=== PATIENT | female | born 1970 | race Asian ===

== ENCOUNTER 2024-08-20 12:29 | Emergency (ER) | payer OTHER, SELFPAY ==
[2024-08-20 12:40] VITALS: BP 155/107
[2024-08-20 12:51] VITALS: BMI 34.2
[2024-08-20 13:13] VITALS: BP 140/94
[2024-08-20 13:21] LABS: % Basophils 0.7 % (0-2); % Eosinophils 3.3 % (0-6); % Immature Granulocytes 0.2 % (0-0.5); % Lymphocytes 36.5 % (20.5-51.1); % Monocytes 7.4 % (1.7-9.3); % Neutrophils 51.9 % (42.2-75.2); Absolute Eosinophils 0.1 10^3/uL (0-0.7); Absolute Lymphocytes 1.5 10^3/uL (1.2-3.4); Absolute Monocytes 0.3 10^3/uL (0.1-0.6); Absolute Neutrophils 2.2 10^3/uL (1.4-6.5); Hematocrit 39.2 % (37.0-47.0); Hemoglobin 12.8 g/dL (12.0-16.0); Mean Corp Hgb Conc. 32.7 g/dL (33.0-37.0); Mean Corpuscular Hgb 28.6 pg (27.0-31.0); Mean Corpuscular Volume 87.5 fL (81.0-99.0); Mean Platelet Volume 10.2 fL (7.4-10.4); Nucleated Red Blood Cells % 0 %; Platelet Count 198 10^3/uL (130-400); Red Blood Cell Count 4.48 10^6/uL (4.20-5.40); Red Cell Dist. Width 13.7 % (11.5-14.5); White Blood Cell Count 4.2 10^3/uL (4.8-10.8)
[2024-08-20 13:35] LABS: HCG, Serum Qualitative Screen Negative
[2024-08-20 13:37] LABS: ALT (SGPT) 18 U/L (0-35); AST (SGOT) 24 U/L (14-36); Albumin 4.5 g/dl (3.5-5.0); Alkaline Phosphatase 37 U/L (38-126); Blood Urea Nitrogen 13 mg/dl (7-17); Calcium 9.3 mg/dl (8.4-10.2); Carbon Dioxide 27 mmol/L (22-30); Chloride 103 mmol/L (98-107); Estimated Creatinine Clearance 112 ml/min; Glucose 80 mg/dl (70-99); Potassium 4.3 mmol/L (3.5-5.1); Sodium 139 mmol/L (135-145); Total Bilirubin 0.5 mg/dl (0.2-1.3); Total Protein 7.7 g/dl (6.3-8.2); eGFR > 60.00
[2024-08-20 14:00] VITALS: BP 131/89
--- NOTE | 2024-08-20 14:01 | ED.GENMED ---
History of Present Illness
General
Chief Complaint: Headache
Source: patient
Exam Limitations: none
Time Seen by Provider: 08/20/24 12:54
Nursing documentation reviewed up to this point in time: agreed with
History of Present Illness
History of Present Illness:
Patient is a 52-year-old female with past medical history of migraines presents to the ER for evaluation. Patient started with a headache 2 nights ago which she reports is different than her normal migraines. She had a little light sensitivity
with it however pain was all over her head and usually it behind her eyes when she gets a migraine. She did take her sumatriptan it did help her light sensitivity but did not relieve her headache. She went to urgent care yesterday blood pressure
was high at that time. Patient reports she is back today with continued headache and a little nausea. She feels that her head is heavy and she has a headache in the back of her head.
SHe reports her blood pressure is still high.
She has no diagnosis of high blood pressure.
Past History
Past History
ED Past Medical History: None
ED Past Surgical History: None
Social History
Tobacco: Non-smoker
Alcohol: None
Personal:
Living: with family
Review of Systems
Review of Systems
Allergies reviewed?: Yes
All Other Systems: ROS reviewed and negative except as documented in HPI and ROS
Constitutional: Reports no symptoms; Denies fever, fatigue or chills
Respiratory: Reports no symptoms
Cardiac: Reports no symptoms
ABD/GI: Reports nausea and vomiting
Musculoskeletal: Reports no symptoms
Skin: Reports no symptoms
Neurological: Reports headache
Psychiatric: Reports no symptoms
Phy Exam
General Physical Exam
General Presentation: no apparent distress
General age: appears stated age
General Skin: warm and dry
General Habitus: normal
General Mental: alert
General Hydration: appears well hydrated
Cardiovascular Exam
Cardiovascular Exam: regular rate/rhythm
Pulmonary Exam
Pulmonary Exam: lungs clear
Neurological Exam
Neurological Exam: alert, oriented x3, no motor deficits and no sensory deficits
Cerebellar
Cerebellar Function: normal finger to nose
Musculoskeletal Exam
Musculoskeletal Exam: full ROM
Skin Exam
Skin Exam: normal color and warm/dry
Psychiatric Exam
Psychiatric Exam: normal mood/affect
Course
Orders/Labs/Results
Orders:
Orders
08/20/24 13:13
Test Result ONCE
08/20/24 13:14
Complete Blood Count/With Diff Urgent
Comprehensive Metabolic Panel Urgent
HCG, Serum Qualitative Screen Urgent
08/20/24 14:00
CT Head W/o Iv Contrast Urgent
Comment:
Reason For Exam: headache
08/20/24 14:01
0.9% Sodium Chloride 1000 ml [Nss] 1,000 ml IV BOLUS
08/20/24 14:31
Ketorolac [Toradol] 15 mg IV NOW STA
08/20/24 15:10
Metoclopramide [Reglan] 10 mg IV NOW STA
08/20/24 15:11
Diphenhydramine [Benadryl] 25 mg IV NOW STA
Abnormal Lab Results
08/20/24
13:14
WBC 4.2 L 10^3/uL
(4.8-10.8)
MCHC 32.7 L g/dL
(33.0-37.0)
Creatinine 0.5 L mg/dL
(0.6-1.0)
Alkaline Phosphatase 37 L U/L
(38-126)
08/20/24 13:14
08/20/24 13:14
Vital Signs
Initial and Last Documented VS:
Initial Vital Signs
Temp Pulse Resp BP Pulse Ox
97.9 F 79 16 155/107 99
08/20/24 12:40 08/20/24 12:40 08/20/24 12:40 08/20/24 12:40 08/20/24 12:40
Last Documented Vital Signs
Temp Pulse Resp BP Pulse Ox
97.9 F 74 14 113/68 100
08/20/24 12:40 08/20/24 16:15 08/20/24 16:15 08/20/24 16:00 08/20/24 16:15
MDM/Problems Addressed
MDM/Problems Addressed:
Patient is a 53-year-old female who does have a history of migraine headaches presents for a headache that was different than her typical migraines. She did have some symptoms of her typical migraine however described this as different. No trauma.
Patient was in urgent care yesterday noted her blood pressure was elevated there and also elevated here when she first came in in triage. Patient presents awake alert no acute distress she is afebrile no meningismus. She is nontoxic-appearing
normal neurologic exam . . CAT scan was done and negative. Patient was initially given fluids and Toradol however did receive Reglan and Benadryl which did improve her symptoms.
Will have her follow-up with her family doctor for reevaluation of her blood pressure
However patient stable for discharge home
*Radiology
Radiology exam reviewed: radiology read reviewed
*Pulse Oximetry
Patient hypoxic: no
*Critical Care Note
Total Time (30-74mins, 75-104mins- exclusive of procedures): Not Applicable
ED Attending Note
-
Portions of this chart may have been created with voice recognition software.� Occasional wrong word or��sound alike� substitutions may have occurred due to the inherent limitations of voice recognition software.
Discharge Plan
Departure
Patient Disposition: Home (Routine Discharge)
Date of Disposition: 08/20/24
Time of Disposition: 17:13
Patient with high blood pressure during this ER visit?: Yes
Condition: Fair
Covid-19: Not Applicable
Discharge Problem:
Headache
Instructions: Headache, Adult (DC), BLOOD PRESSURE
Prescriptions:
No Action
sumatriptan succinate [Imitrex] 100 MG tablet
100 mg PO PRN PRN (Reason: AYERS)
Referrals:
Myla Duval MD [Family Provider] -
Activity Restrictions/Additional Instructions:
As discussed follow-up with your family doctor tomorrow as scheduled for reevaluation of blood pressure and headaches. Your blood pressure has improved here in the ER. Return if any worsening of symptoms
Interventions
Interventions:
*Risk Screen - Suicide Last Done: 08/20/24 12:40
*General Assessment Last Done: 08/20/24 12:40
*Neglect/Abuse Screening Last Done: 08/20/24 12:40
*Nursing Disposition Last Done: 08/20/24 17:26
ED- Neurological Assessment Last Done: 08/20/24 12:51
Discharge Date and Time
Discharge Date/Time: 08/20/24 17:27
Print Language: [id number]
[2024-08-20 14:17] VITALS: BP 131/96
[2024-08-20] MEDS: NSS 1000 IV (14:22)
[2024-08-20] MEDS: TORADOL 15 MG IV (14:33)
[2024-08-20 15:00] VITALS: BP 135/85
[2024-08-20] MEDS: REGLAN 10 MG IV (15:22)
[2024-08-20] MEDS: BENADRYL 25 MG IV (15:22)
[2024-08-20 16:00] VITALS: BP 113/68
== END 2024-08-20 17:27 | disposition home or self-care (01) ==
LOC: EMR 12:29
PROVIDERS: Nurse Practitioner; EMERGENCY PHYSICIAN Emergency Medicine; FAMILY PHYSICIAN Internal Medicine
DX: R51.9 Headache, unspecified (principal); R03.0 Elevated blood-pressure reading, without diagnosis of hypertension
CPT/HCPCS: 96374; 96375; 96361; 99284; 70450; 80053; 84703; 85025